=== PATIENT | female | born 1965 | race Caucasian/White ===

== ENCOUNTER 2016-08-07 10:21 | Emergency (ER) | payer OTHER ==
[2016-08-07 10:39] VITALS: BP 130/76; PULSE 86; TEMP 98.1; BMI 28.9
--- NOTE | 2016-08-07 11:41 | PDOC ---
History of Present Illness - General Chief Complaint: Eye Problem Stated Complaint: EYE PROBLEM Time Seen by Provider: 08/07/16 11:06 History Source: Patient Exam Limitations: No Limitations - History of Present Illness Initial Comments: 08/07/16 11:35 CC swelling to left eye lid x 2 days; no trauma Severity: mild Associated Symptoms: denies: cough, fever/chills, nausea/vomiting, rash Past History - Past Medical History Allergies/Adverse Reactions: Allergies Allergy/AdvReac Type Severity Reaction Status Date / Time No Known Allergies Allergy Verified 08/07/16 10:39 Home Medications: Ambulatory Orders NK [No Known Home Medication] 08/07/16 DVT: Yes - Psycho/Social/Smoking Cessation Hx Anxiety: No Suicidal Ideation: No Smoking History: Never smoked Have you smoked in the past 12 months: No Information on smoking cessation initiated: No Hx Alcohol Use: No Drug/Substance Use Hx: No Substance Use Type: None Review of Systems - Review of Systems Constitutional: No: Chills, Fever HEENTM: Yes: Other (swelling upper eyelid). No: Blurred Vision, Tearing, Recent change in vision, Double Vision, Ear Pain, Throat Swelling Respiratory: No: Symptoms reported, Cough Cardiac (ROS): No: Symptoms Reported ABD/GI: No: Symptoms Reported *Physical Exam - Vital Signs Last Vital Signs Temp Pulse Resp BP Pulse Ox 98.1 F 86 14 130/76 96 08/07/16 10:34 08/07/16 10:34 08/07/16 10:34 08/07/16 10:34 08/07/16 10:34 - Physical Exam General Appearance: Yes: Appropriately Dressed. No: Apparent Distress HEENT: positive: [place], Normal Voice, Symmetrical, TMs Normal, Pharynx Normal, Other (significant STS upper center left eyelid, with lots of eye make up noted ; EOMs intact wo pain at movement) Respiratory/Chest: positive: Lungs Clear Medical Decision Making - Medical Decision Making 08/07/16 11:38 will treat with hot soaks and doxycycline; follow up 1 week if no better *DC/Admit/Observation/Transfer Diagnosis at time of Disposition: Sty, external Qualifiers: Laterality: left Eyelid: upper Qualified Code(s): H00.014 - Hordeolum externum left upper eyelid - Discharge Dispostion Disposition: HOME Condition at time of disposition: Stable Admit: No - Patient Instructions Additional Instructions: warm soaks to left upper lid for 30 minutes 3 times daily; see eye MD if no better 1 week or if pain with eye movement - Post Discharge Activity Work/School Note: Back to Work
--- NOTE | 2016-08-07 11:44 | PDOC ---
*Physical Exam - Vital Signs Last Vital Signs Temp Pulse Resp BP Pulse Ox 98.1 F 86 14 130/76 96 08/07/16 10:34 08/07/16 10:34 08/07/16 10:34 08/07/16 10:34 08/07/16 10:34 *DC/Admit/Observation/Transfer Diagnosis at time of Disposition: Sty, external Qualifiers: Laterality: left Eyelid: upper Qualified Code(s): H00.014 - Hordeolum externum left upper eyelid - Prescriptions Prescriptions: Doxycycline Hyclate [Vibratab -] 100 mg PO BID #20 tablet - Referrals Referrals: Jordon Oviedo MD [Primary Care Provider] - Robbie Massey MD [Staff Physician] - - Patient Instructions Additional Instructions: warm soaks to left upper lid for 30 minutes 3 times daily; see eye MD if no better 1 week or if pain with eye movement - Post Discharge Activity Work/School Note: Back to Work
== END 2016-08-07 11:59 | disposition home or self-care (01) ==
LOC: JERFT 10:21
DX: H00.014 Hordeolum externum left upper eyelid (principal); Z86.718 Personal history of other venous thrombosis and embolism
CPT/HCPCS: 99281-25

== ENCOUNTER → 2020-02-26 | Day surgery (SDC) | payer OTHER ==
[2020-02-25 14:05] VITALS: BMI 30.2
[~2020-02-26] MED LIST: BUPIVACAINE HCL 50 ML ONE; BUPIVACAINE HCL/PF 0.5% (5MG/ML) 10 ML VIAL IJ ONE; LACTATED RINGERS SOLUTION 1,000 ML IV SCH; LIDOCAINE 1%/EPI 1:100000 (20 ML MULTI DOSE VIAL) IJ ONE; LIDOCAINE 1%/EPI 1:100000 (50 ML MULTI DOSE VIAL) ONE; MIDAZOLAM HCL 2 MG/2 ML SINGLE DOSE VIAL ONE; ONDANSETRON 4 MG/2 ML VIAL IVPUSH PRN; oxyCODONE HCL 5 MG TABLET PO PRN
[2020-02-26 12:05] VITALS: TEMP 97.5
[2020-02-26 12:33] VITALS: BP 106/65; PULSE 72
== END | disposition home or self-care (01) ==
LOC: JASU-SURG 05:45
PROVIDERS: ATTEND Surgery
PROC: 0HBKXZX Excision of Right Lower Leg Skin, External Approach, Diagnostic (ICD-10-PCS; 2020-02-26)
PROC: 0HB6XZX Excision of Back Skin, External Approach, Diagnostic (ICD-10-PCS; principal; 2020-02-26 10:00)
DX: D23.5 Other benign neoplasm of skin of trunk (principal); L72.0 Epidermal cyst
CPT/HCPCS: 88304-TC; 88305-TC; 88342-TC

== ENCOUNTER 2023-04-10 20:38 | Observation (INO) | payer OTHER ==
[2023-04-10 20:54] VITALS: BMI 32.7
[2023-04-10 21:40] LABS: THROAT:GRP A STREP NOT DETECTED (NOTDETECTED)
[2023-04-11 00:22] LABS: BASO % 0.4 % (0-2.0); EOS % 0.2 % (0-4.5); HEMATOCRIT 44.2 % (32.4-45.2); HEMOGLOBIN 14.8 GM/dL (10.7-15.3); LYMPH % 29.3 % (8-40); MCH 30.1 pg (25.7-33.7); MCHC 33.4 g/dl (32.0-36.0); MEAN CELL VOLUME 90.2 fl (80-96); MEAN PLT VOLUME 8.6 fl (7.5-11.1); MONO % 7.4 % (3.8-10.2); NEUT % 62.7 % (42.8-82.8); PLATELET COUNT 273 10^3/uL (134-434); RDW 14.3 % (11.6-15.6); WHITE BLOOD COUNT 7.6 K/mm3 (4.0-10.0)
[2023-04-11] MEDS ORDERED: SODIUM CHLORIDE 0.9% 500 ML INFUS.BAG IV ONE (00:24)
[2023-04-11] MEDS ORDERED: METOCLOPRAMIDE HCL INJECTION 10 MG/2 ML VIAL IVPB ONE (00:24)
[2023-04-11 00:36] LABS: INR 1.17 (0.83-1.09); PROTHROMBIN TIME (PATIENT) 13.5 SEC (9.7-13.0)
[2023-04-11] MEDS ORDERED: METOCLOPRAMIDE HCL INJECTION 10 MG/2 ML VIAL ONE (00:36)
[2023-04-11 00:38] LABS: ACTIVATED PTT 24.2 SECONDS (25.2-36.5)
[2023-04-11 00:41] LABS: POTASSIUM 4.4 mmol/L (3.5-5.1)
[2023-04-11 00:44] LABS: CALCIUM 9.1 mg/dL (8.5-10.1)
[2023-04-11 00:45] LABS: ALBUMIN 3.2 g/dl (3.4-5.0); BLOOD UREA NITROGEN 11.3 mg/dL (7-18)
[2023-04-11 00:48] LABS: CREATININE 0.4 mg/dL (0.55-1.3)
[2023-04-11 00:49] LABS: TOT PROT 7.3 g/dl (6.4-8.2)
[2023-04-11 00:50] LABS: BILIRUBIN,TOTAL 0.6 mg/dL (0.2-1)
[2023-04-11] MEDS ORDERED: ONDANSETRON 4 MG/2 ML VIAL IVPUSH ONE (02:05)
[2023-04-11] MEDS ORDERED: ACETAMINOPHEN 1000 MG/100 ML BAG IVPB ONE (02:07)
[2023-04-11] MEDS ORDERED: ACETAMINOPHEN INJECTION 100 ML IVPB ONE (02:12)
[2023-04-11] MEDS ORDERED: ONDANSETRON 4 MG/2 ML VIAL ONE (02:12)
[2023-04-11 03:56] LABS: EPI CELLS 8 /uL (0-25.1); HYALINE CASTS 1 /uL (0-3.1); PH,URINE 6.5 (5.0-8.0); URINE APPEARANCE CLEAR; URINE BACTERIA 238 /uL (0-1359); URINE BILIRUBIN NEGATIVE (NEGATIVE); URINE COLOR YELLOW; URINE GLUCOSE (UA) NEGATIVE (NEGATIVE); URINE KETONE NEGATIVE (NEGATIVE); URINE LEUK ESTERASE 2+ (NEGATIVE); URINE NITRITE NEGATIVE (NEGATIVE); URINE PROTEIN NEGATIVE (NEGATIVE); URINE UROBILINOGEN 0.2 mg/dL (0.2-1.0); URINE WBC 285 /uL (0-25.8)
[2023-04-11 04:40] LABS: URINE RBC 19.3 /uL (0-23.9)
[2023-04-11] MEDS ORDERED: MECLIZINE HCL 25 MG TABLET (FP) PO ONE (05:42)
[2023-04-11] MEDS ORDERED: MECLIZINE HCL 25 MG TABLET (FP) ONE ×2 (05:49→19:52)
[2023-04-11 06:48] VITALS: RESP 18
[2023-04-11] MEDS ORDERED: MAG HYDROX/AL HYDROX/SIMETH 30 ML UNIT-DOSE CUP PO ONE (08:09)
[2023-04-11] MEDS ORDERED: FAMOTIDINE 20 MG/50 ML IVPB 20 MG/50 ML MG IVPB ONE ×2 (08:09→08:40)
[2023-04-11] MEDS ORDERED: MAG HYDROX/AL HYDROX/SIMETH 30 ML UNIT-DOSE CUP ONE (08:40)
[2023-04-11] MEDS ORDERED: ENOXAPARIN NA (PORCINE) 40 MG/0.4 ML DISP.SYRIN SQ ONE (08:40)
[2023-04-11] MEDS ORDERED: ENOXAPARIN NA (PORCINE) 40 MG/0.4 ML DISP.SYRIN SQ SCH (10:00)
[2023-04-11] MEDS ORDERED: MECLIZINE HCL 25 MG TABLET (FP) PO PRN (10:33)
[2023-04-11] MEDS ORDERED: TRIMETHOBENZAMIDE HCL 200MG/2ML INJ IM PRN (10:36)
[2023-04-11] MEDS ORDERED: LACTATED RINGERS SOLUTION 1,000 ML/1,000 ML INFUS.BAG IV SCH (11:00)
[2023-04-11 14:18] VITALS: BP 141/66; PULSE 76; TEMP 98.5
[2023-04-11] MEDS ORDERED: TRIMETHOBENZAMIDE HCL 200MG/2ML INJ IM ONE (19:52)
== END 2023-04-11 20:30 | disposition home or self-care (01) ==
LOC: JER 20:38 → JERBED 04-11 08:31
PROVIDERS: ADMIT Internal Medicine; ATTEND Internal Medicine
PROC: 3E033NZ Introduction of Analgesics, Hypnotics, Sedatives into Peripheral Vein, Percutaneous Approach (ICD-10-PCS; principal; 2023-04-11)
PROC: 3E033GC Introduction of Other Therapeutic Substance into Peripheral Vein, Percutaneous Approach (ICD-10-PCS; 2023-04-11)
PROC: 3E0337Z Introduction of Electrolytic and Water Balance Substance into Peripheral Vein, Percutaneous Approach (ICD-10-PCS; 2023-04-11)
PROC: 3E023GC Introduction of Other Therapeutic Substance into Muscle, Percutaneous Approach (ICD-10-PCS; 2023-04-11)
DX: R42 Dizziness and giddiness (principal); R11.2 Nausea with vomiting, unspecified; R53.1 Weakness; R26.2 Difficulty in walking, not elsewhere classified; R10.9 Unspecified abdominal pain; Z29.89 Encounter for other specified prophylactic measures; I83.90 Asymptomatic varicose veins of unspecified lower extremity
CPT/HCPCS: 0241U-QW; 36415; 70450-TC; 71045-TC-FY; 74177-TC; 80053; 81003; 84484; 85025; 85610; 85730; 87086; 87651; 93005; 93010; 96361; 96365; 96372; 96375; 99285-25; G0378; Q9967